=== PATIENT | female | born 1950 | race Two or more races ===

== ENCOUNTER 2021-04-12 08:25 | Day surgery (SDC) | payer OTHER ==
[~2021-04-12 08:25] MED LIST: COZAAR100 MG PO; CRESTOR20 MG PO; PANTOPRAZOLE SO40 MG PO; RESTORIL30 M1 PO
== END 2021-04-12 14:45 | disposition home or self-care (01) ==
LOC: CIR.AMB 08:25
PROVIDERS: ATTEND Obstetrics & Gynecology Gynecology
DX: R35.0 Frequency of micturition (principal); N31.8 Other neuromuscular dysfunction of bladder